=== PATIENT | female | born 1985 | race Caucasian/White ===

== ENCOUNTER 2025-01-07 20:27 | Emergency (ER) | payer OTHER ==
[~2025-01-07] VITALS: Ht 152.4 cm; Wt 63.5 kg
[2025-01-07] MEDS ORDERED: KETOROLAC TROMETHAMINE 15 MG/ML VIAL ONE (21:31)
[2025-01-07] MEDS: KETOROLAC TROMETHAMINE 15 MG/ML VIAL IM ONE (21:36)
[2025-01-07] MEDS ORDERED: PENI500T PO (21:42)
[2025-01-07] MEDS ORDERED: LIDO30AD10 TP (21:42)
[2025-01-07 21:55] VITALS: BP 130/79; TEMP 98.3; O2SAT 99
== END 2025-01-07 21:55 | disposition home or self-care (01) ==
LOC: ER 20:33
DX: S29.012A Strain of muscle and tendon of back wall of thorax, initial encounter (principal); M25.512 Pain in left shoulder; K08.89 Other specified disorders of teeth and supporting structures; R20.2 Paresthesia of skin; R51.9 Headache, unspecified; X58.XXXA Exposure to other specified factors, initial encounter; Y93.89 Activity, other specified; Y92.89 Other specified places as the place of occurrence of the external cause; Y99.8 Other external cause status
CPT/HCPCS: 99283; 96372; J1885